=== PATIENT | female | born 1965 | race Caucasian/White ===

== ENCOUNTER 2018-05-02 12:35 | Outpatient (CLI) | payer OTHER | END 2018-05-02 12:36 | disposition home or self-care (01) | LOC: BICMAMMO 12:35 | PROVIDERS: ATTEND Family Medicine | DX: Z12.31 Encounter for screening mammogram for malignant neoplasm of breast (principal); L90.5 Scar conditions and fibrosis of skin; Z98.890 Other specified postprocedural states; Z85.3 Personal history of malignant neoplasm of breast | CPT/HCPCS: 77063; 77067 ==

== ENCOUNTER 2018-05-25 00:36 | Observation (INO) | payer OTHER ==
[2018-05-25 01:58] LABS: #Basophils 0.1 thou/uL (0.0-0.2); #Eosinphils 0.2 thou/uL (0.0-0.7); #Monocytes 0.8 thou/uL (0.11-0.59); #Neutrophils 6.3 thou/uL (1.40-6.50); %Basophils 0.7 % (0.0-1.0); %Monocytes 8.7 % (0.0-10.0); %Neutrophils 67.6 % (42.0-75.0); Mean Corpuscular HGB CONC 32.5 g/dL (32.0-36.0); Mean Corpuscular Hemoglobin 25.7 pg (27.0-31.0); Mean Platelet Volume 9.5 fL (7.4-10.4); Platelet Count 232 thou/uL (130-400); RBC Distribution Width 14.5 % (11.5-14.5); Red Blood Cell (RBC) Count 4.28 mill/uL (4.20-5.40); White Blood Cell (WBC) Count 9.3 thou/uL (4.8-10.8)
[2018-05-25] MEDS ORDERED: Morphine 4 MG/ML VIAL ONE (01:59)
[2018-05-25] MEDS ORDERED: Ketorolac Tromethamine 30 MG/ML VIAL ONE (01:59)
[2018-05-25 02:23] LABS: ALT (SGPT) 15 U/L (8-55); AST (SGOT) 19 U/L (5-34); Albumin 4.1 g/dL (3.5-5.0); Alkaline Phosphatase 83 U/L (40-150); Anion Gap 15 mmol/L (10-20); BUN (Urea Nitrogen) 20 mg/dL (9.8-20.1); Bilirubin, Total Less than 0.2 mg/dL (0.2-1.2); CK (CPK) 219 U/L (29-168); Calc. Creatinine Clearance 0 mL/min (70-130); Calcium 9.5 mg/dL (7.8-10.44); Carbon Dioxide 20 mmol/L (22-29); Chloride 110 mmol/L (98-107); Estimated GFR-MDRD 70; Glucose 114 mg/dL (70-105); Lipase 54 U/L (8-78); Potassium 4.1 mmol/L (3.5-5.1); Protein, Total 8.1 g/dL (6.0-8.3); Sodium 141 mmol/L (136-145)
[2018-05-25 02:35] LABS: Bilirubin Negative (Negative); Blood, Urine Negative (Negative); Clarity CLEAR (Clear); Glucose, Urine (Dipstick) Negative (Negative); Leukocyte Moderate (Negative); Nitrite Negative (Negative); Protein, Urine (Dipstick) Negative (Neg-Trace); Specific Gravity, Urine 1.033 (1.002-1.036); Urobilinogen 0.2 mg/dL (0.2-1.0); pH, Urine 5.5 (5.0-9.0)
[2018-05-25 02:38] LABS: Bacteria/HPF None Seen HPF (None Seen); Hyaline Casts/LPF 4-6 HYALINE CAST LPF (0-3 Hyaline); Pathc Cast-AUWi Flag 0.29 (0-2.49); Squamous Epithelial 0-3 HPF (0-3); WBC/HPF 21-50 HPF (0-3)
[2018-05-25 06:06] LABS: Troponin I Less than 0.010 ng/mL (< 0.028)
[2018-05-25] MEDS ORDERED: Morphine 10 MG/ML VIAL ONE (06:54)
--- NOTE | 2018-05-25 08:09 | CT ---
PRELIMINARY REPORT/[facility]/EMERGENTY AFTER-HOURS PROCEDURE CT Angiography Chest With Contrast EXAM DATE/TIME: 05/25/2018 3:06 AM CLINICAL HISTORY: 52 years old, female; Pain; Chest pressure; Abdominal pain; Acute; Patient HX: F52 presents to ed for rib pain. PT reports moving a wheel barrel full of stones on the 15th and reports right rib pain 3 d ays later. PT reports since then the pain has progressively worsened. PT reports dry cough x3-4 weeks, night sweats x3-4 days, and diarrhea. PT denies any nausea, vomiting, fever, or chills. TECHNIQUE: Axial computed tomographic angiography images of the chest with intravenous contrast using CT angiogr aphy protocol. MIP reconstructed images were created and reviewed. COMPARISON: No relevant prior studies available. FINDINGS: Pulmonary arteries: No evidence of pulmonary embolism. Aorta: No acute findings. No aortic aneurysm or dissection. Lungs: Bilateral septal and peribronchial thickening and groundglass opacities likely represents pulm onary edema. Dependent and linear atelectasis. Pleural space: No pneumothorax. No pleural effusion. Heart: Cardiomegaly. No pericardial effusion. Mediastinum: Hiatal hernia. Lymph nodes: No significant adenopathy. Bones/joints: No acute fracture. Soft tissues: No acute findings. IMPRESSION: Pulmonary edema. Cardiomegaly. CT Angiography Abdomen With Contrast EXAM DATE/TIME: 05/25/2018 3:06 AM TECHNIQUE: Axial computed tomographic angiography images of the abdomen with intravenous contrast material, incl uding non-contrast images if performed. MIP and/or 3D reconstructed images were created and reviewed. MIP reconstructed images were created and reviewed. COMPARISON: No relevant prior studies available. FINDINGS: VASCULATURE: Aorta: No aortic aneurysm. No aortic dissection. Celiac trunk and mesenteric arteries: No occlusion or significant stenosis. Renal arteries: No occlusion or significant stenosis. ABDOMEN: Liver: No acute findings. No mass. Gallbladder and bile ducts: No calcified stones. No ductal dilation. Pancreas: No acute findings. No ductal dilation. Spleen: No acute findings. No splenomegaly. Adrenals: No acute findings. No mass. Kidneys and ureters: No acute findings. No hydronephrosis. Stomach and bowel: No obstruction. Intraperitoneal space: No free air. No significant fluid collection. Bones/joints: No acute fracture. No dislocation. Soft tissues: No acute findings. Lymph nodes: No enlarged lymph nodes. IMPRESSION: Unremarkable CTA abdomen. Thank you for allowing us to participate in the care of your patient. Dictated and Authenticated by: Keyshawn Still MD 05/25/2018 4:32 AM Central Time ([place] & [place]) FINAL REPORT CT ARTERIOGRAM CHEST WITH IV CONTRAST AND 3D MIP IMAGING CT ARTERIOGRAM ABDOMEN WITH IV CONTRAST AND 3D MIP IMAGING PERFORMED ON AN EMERGENCY BASIS: Date: 05/25/18 Time: 0309 hours HISTORY: Chest and abdomen pain radiating to back. FINDINGS/IMPRESSION: Findings agree with the preliminary report by [facility]. No CT evidence of aortic dissection or aneurysm. Hiatal hernia. Cardiomegaly. Minimal pericardial fluid. Pulmonary vascular congestion and developing edema. POS: [facility]
--- NOTE | 2018-05-25 08:15 | ULT ---
PRELIMINARY REPORT/[facility]/EMERGENTY AFTER-HOURS PROCEDURE US Abdomen Limited, Right Upper Quadrant EXAM DATE/TIME: 05/25/2018 1:41 AM CLINICAL HISTORY: 52 years old, female; Pain; Other: Rib pain TECHNIQUE: Real-time ultrasound of the abdomen with image documentation. Examination was focused on the right up per quadrant. COMPARISON: No relevant prior studies available. FINDINGS: Liver: Echogenic/fatty liver. No acute findings. No mass. Gallbladder: No acute findings. No gallstones. Common bile duct: Measures 6.6mm in diameter. Pancreas: Visualized pancreas is unremarkable. Right kidney: No acute findings. No mass. No hydronephrosis. IMPRESSION: No acute findings. Thank you for allowing us to participate in the care of your patient. Dictated and Authenticated by: Keyshawn Still MD 05/25/2018 4:08 AM Central Time ([place] & [place]) FINAL REPORT ULTRASOUND GALLBLADDER RIGHT UPPER QUADRANT: HISTORY: Abdominal pain. COMPARISON: None. FINDINGS: Real-time, ireland scale, and color evaluation of the right upper quadrant of the abdomen was performed. Findings and impression are concordant with the preliminary report. POS: [facility]
[2018-05-25 08:19] VITALS: BMI 41.0
[2018-05-25] MEDS ORDERED: Morphine 4 MG/ML VIAL SLOW IVP PRN (08:35)
[2018-05-25] MEDS ORDERED: Aspirin 325 MG TAB PO SCH (08:45)
[2018-05-25 09:19] LABS: Troponin I Less than 0.010 ng/mL (< 0.028)
[2018-05-25 11:37] VITALS: BP 150/67; TEMP 98.1
[2018-05-25 14:57] LABS: ALT (SGPT) 11 U/L (8-55); AST (SGOT) 15 U/L (5-34); Albumin 3.9 g/dL (3.5-5.0); Alkaline Phosphatase 76 U/L (40-150); Anion Gap 10 mmol/L (10-20); BUN (Urea Nitrogen) 16 mg/dL (9.8-20.1); Bilirubin, Total 0.2 mg/dL (0.2-1.2); Calc. Creatinine Clearance 147 mL/min (70-130); Calcium 8.7 mg/dL (7.8-10.44); Carbon Dioxide 24 mmol/L (22-29); Chloride 109 mmol/L (98-107); Estimated GFR-MDRD 76; Globulin 3.3 g/dL (2.4-3.5); Glucose 93 mg/dL (70-105); Potassium 3.9 mmol/L (3.5-5.1); Protein, Total 7.2 g/dL (6.0-8.3); Sodium 139 mmol/L (136-145)
[2018-05-25] MEDS ORDERED: ISOVUE-370 76%-LOCM 1 ML ONE (16:48)
--- NOTE | 2018-05-26 15:01 | SS ---
DATE OF ADMISSION: 05/25/2018 DATE OF DISCHARGE: 05/25/2018 PRIMARY CARE PHYSICIAN: Jeffery Ruiz MD. CHIEF COMPLAINT: Right chest and abdominal pain. HISTORY OF PRESENT ILLNESS: This is a 52-year-old, obese, white female without any cardiac history. She presents with 8 days of worsening right lower rib cage pain, radiating to her right flank and stomach. The patient reports that about 11 days ago, she lifted a wheelbarrow with some heavy stones and just scooted it over a little bit. She did not hurt after that, but she has also been having severe cough for about 2 to 3 weeks, which she has been being treated with cough medicines by per PCP. She reports that 8 days ago, she had gradual onset of right lower rib cage pain along the lower axially line with point tenderness and pain radiating all around it. She reports that the pain was worse with any deep breathing, with coughing, with twisting or any sort of movement. Pain got severely worse over the last few days, and so she came into the emergency room. In the ER, she was found to have an elevated D-dimer, so she had a CT dissection protocol, which showed no pulmonary embolism. No aortic aneurysm or dissection. No other abnormalities except for some cardiomegaly and some pulmonary vascular congestion. However, her B-natriuretic peptide was normal. The patient reports that her cough has actually gotten better over the last few days, but the pain has resided still there. Although, it did improve with medication in the emergency room. Due to having the right lower quadrant tenderness just below where the maximal pain is, she had an ultrasound done in the emergency room. This showed no gallstones. It did show a fatty liver and showed a common bile duct of 6.6 mm. No other abnormalities. The patient was put in observation for evaluation. The patient did have serial enzymes done overnight, which were negative. All 3 of her troponins were normal. She had normal liver function tests. PAST MEDICAL HISTORY: 1. Right breast cancer, status post resection. 2. Hypothyroidism. 3. Hiatal hernia. PAST SURGICAL HISTORY: 1. Right-sided lumpectomy and lymph node dissection. 2. Hysterectomy. 3. C3-C4 fusion. PSYCHIATRIC HISTORY: 1. Anxiety. 2. Depression. SOCIAL HISTORY: The patient smokes just under a pack per day of cigarettes and has smoked for the past 16 years. No alcohol or illicit drug use. ALLERGIES: NO KNOWN DRUG ALLERGIES. CURRENT MEDICATIONS: 1. Tizanidine 4 mg daily. 2. Alprazolam 0.5 mg twice a day. 3. Levothyroxine 75 mcg daily. 4. Tylenol with codeine No. 3 as needed. 5. Lamotrigine 150 mg daily. 6. Trazodone 200 mg at night. 7. Sertraline 100 mg daily. REVIEW OF SYSTEMS: CONSTITUTIONAL: No fevers. No chills. No weight changes. EYES: No double vision or blurred vision. ENT: No congestion, drainage, or sore throat. CARDIOVASCULAR: No chest pain. No palpitations or racing heart. PULMONARY: She has a coughing as per the HPI, which is mostly dry with a little bit of clear sputum. No dyspnea. No wheezing. GASTROINTESTINAL: No abdominal pain. No nausea or vomiting. She does have alternating diarrhea and constipation, this is normal for her. She also does regurgitate food into her back of her throat while she is sleeping at night. GENITOURINARY: No dysuria or hematuria. MUSCULOSKELETAL: See HPI. No other muscle aches or joint pains. SKIN: No rashes or lesions that she has noted. NEUROLOGIC: She has no numbness, tingling, or focal weakness currently. She does intermittently have numbness in her right arm from some bad disks in her neck, but this is chronic. PHYSICAL EXAMINATION: VITAL SIGNS: Blood pressure 150/67, pulse 64, respirations 20, O2 saturation 93 % on room air, temperature 98.1. GENERAL: This is a well-developed, morbidly obese, white female, in no acute distress when she lies still and does not move. HEENT: Pupils are equal, round, and reactive to light. Oropharynx is clear without lesions, erythema, or exudate. NECK: Supple. No lymphadenopathy. No thyroid nodules or enlargement. No JVD. HEART: Regular rate and rhythm. No murmurs, rubs, or gallops. LUNGS: Clear to auscultation bilaterally. No wheezes, crackles, or rhonchi. She does have point tenderness on the right axillary line at the lower end of the rib cage with no deformity or bruising, and no rash visualized. Pressing in this point reproduces all the pain. She does have some tenderness in the right upper quadrant, although it is not nearly as severe as right over the rib cage. ABDOMEN: Obese and soft. Mild tenderness to palpation in the right upper quadrant and right flank. No hepatosplenomegaly. No other masses. Normoactive bowel sounds. EXTREMITIES: No clubbing, cyanosis, or edema. SKIN: No rashes or lesions noted. NEUROLOGIC: Intact sensation in all extremities. No facial droop. LABORATORY DATA: CBC; white blood cell count 9.3, hemoglobin 11, hematocrit 33, platelet count 232. D-dimer is elevated at 0.5. Complete metabolic panel is notable for chloride of 110, carbon dioxide of 20, and glucose of 114. LFTs are normal. Creatine kinase 219. Troponin negative x3. Urinalysis did have some leukocyte esterase and white blood cells, but no bacteria seen, it was a dirty specimen with multiple squamous epithelial cells along with some hyaline casts. CT and ultrasound were reviewed, see HPI. ASSESSMENT: 1. Right-sided rib cage strain from coughing. No evidence of acute coronary syndrome. This does not appear to be related to her liver or gallbladder at this point given the higher end is normal and common bile duct size. Joceline Santana was consulted by the ER. I did discuss the case with him on the phone, and he read that this was still within the normal range for the patient in her age, and he said she did not have any other abnormalities on her ultrasound and normal liver function tests, and she did not need any GI evaluation. Given the patient's diagnosis and really out of acute coronary syndrome, I am going to discharge her home with anti-inflammatories and also with Protonix to prevent any sort of irritation of her stomach or esophagus due to her hiatal hernia. 2. Mildly enlarged heart and some congestion on the CT scan, which is not consistent with her exam and her negative B-natriuretic peptide. There is a possibility that the patient does have some early congestive heart failure or maybe some heart strain from obesity hypoventilation syndrome. I have recommended that she follow up with her primary care physician in 1 to 2 weeks as she may need a cardiac evaluation , but at this point, she does not appear to have any active cardiac symptoms. 3. Hiatal hernia. Take Protonix daily while on NSAIDs. DISCHARGE MANAGEMENT: DISPOSITION: Discharge home. FOLLOWUP: Follow up with Dr. Ruiz in 1 to 2 weeks. ACTIVITY: As tolerated. DIET: Regular diet. MEDICATIONS: The patient is to resume her home medications along with: 1. Naproxen 500 mg twice a day as needed for pain, 60 tablets dispensed. 2. Protonix 40 mg daily, 30 tablets dispensed. Job ID: [id number] MTDD
--- NOTE | 2018-05-27 16:58 | EKG ---
Test Reason : RIB PAIN Blood Pressure : / mmHG Vent. Rate : 079 BPM Atrial Rate : 079 BPM P-R Int : 126 ms QRS Dur : 088 ms QT Int : 426 ms P-R-T Axes : 059 006 057 degrees QTc Int : 488 ms Normal sinus rhythm Normal ECG Confirmed by MICHEAL DURANT ([id number]), health editor GISELE ESTEVEZ ([id number]) on 05/27/2018 4:58:09 PM Referred By: Confirmed By:MICHEAL DURANT
== END 2018-05-25 14:32 | disposition home or self-care (01) ==
LOC: ERS 00:36 → ERHOLD 06:20 → 2SE 07:53
PROVIDERS: ADMIT Internal Medicine; ATTEND Internal Medicine
DX: R07.81 Pleurodynia (principal); I51.7 Cardiomegaly; K44.9 Diaphragmatic hernia without obstruction or gangrene; E03.9 Hypothyroidism, unspecified; E66.9 Obesity, unspecified; Z68.41 Body mass index [BMI] 40.0-44.9, adult; F41.9 Anxiety disorder, unspecified; F32.9 Major depressive disorder, single episode, unspecified; F17.210 Nicotine dependence, cigarettes, uncomplicated; Z90.710 Acquired absence of both cervix and uterus; Z98.1 Arthrodesis status; Z85.3 Personal history of malignant neoplasm of breast; Z79.899 Other long term (current) drug therapy; Z98.890 Other specified postprocedural states
CPT/HCPCS: 36415; 71275; 76705; 80053; 81003; 81015; 82550; 83690; 83880; 84484; 85025; 85379; 93005; 96361; 96374; 96375; 96376; G0378; J1885; J2270

== ENCOUNTER 2018-09-25 15:46 | Outpatient (CLI) | payer OTHER ==
--- NOTE | 2018-09-25 16:55 | ULT ---
ABDOMINAL ULTRASOUND: Date: 09-25-18 Provided Clinical History: Right upper quadrant pain. FINDINGS: The visualized abdominal aorta, IVC, and pancreas appear normal. The liver appears enlarged measuring about 20.5 cm craniocaudal dimension at the right hepatic lobe. There is no evidence for mass or int rahepatic biliary ductal dilatation. The common duct is upper limits normal in size. Gallbladder demo nstrates no stones, wall thickening or pericholecystic fluid. Kidneys demonstrate no evidence for hydronephrosis or mass. The spleen is enlarged measuring about 13 cm in craniocaudal dimension. IMPRESSION: 1. Hepatosplenomegaly. 2. Prominent common duct, upper limits of normal. POS: [facility]
== END 2018-09-25 15:47 | disposition home or self-care (01) ==
LOC: BICULT 15:46
PROVIDERS: ATTEND Family Medicine
DX: R10.9 Unspecified abdominal pain (principal); R16.2 Hepatomegaly with splenomegaly, not elsewhere classified
CPT/HCPCS: 76700

== ENCOUNTER 2018-10-04 11:58 | Outpatient (CLI) | payer OTHER ==
--- NOTE | 2018-10-04 13:50 | RAD ---
ABDOMEN TWO VIEWS: 10/04/2018 PROVIDED CLINICAL HISTORY: Right upper quadrant pain. COMPARISON: None. FINDINGS: The visualized lung bases appear clear. The abdominal bowel gas pattern is nonspecific. Conspicuous colonic fecal retention. No evidence for pneumoperitoneum. No radiographically apparent urinary tr act calculi. IMPRESSION: 1. Nonspecific bowel gas pattern. 2. Conspicuous colonic fecal retention. Correlation for constipation. POS: [facility]
== END 2018-10-04 11:59 | disposition home or self-care (01) ==
LOC: BICRAD 11:58
PROVIDERS: ATTEND Physician Assistant Medical
DX: R10.11 Right upper quadrant pain (principal)
CPT/HCPCS: 74019

== ENCOUNTER 2019-04-12 17:50 | Observation (INO) | payer SELFPAY ==
[~2019-04-12 17:50] MED LIST: Iopamidol-370 76% 500 ML 1 ML ONE
[2019-04-12 18:15] LABS: #Basophils 0.1 thou/uL (0.0-0.2); #Eosinphils 0.2 thou/uL (0.0-0.7); #Lymphocytes 2.2 thou/uL (1.20-3.40); #Monocytes 0.4 thou/uL (0.11-0.59); #Neutrophils 3.3 thou/uL (1.40-6.50); %Basophils 0.8 % (0.0-1.0); %Eosinophils 3.2 % (0.0-10.0); %Lymphocytes 36.1 % (21.0-51.0); %Neutrophils 52.9 % (42.0-75.0); Hemoglobin 13.7 g/dL (12.0-16.0); Mean Corpuscular HGB CONC 33.9 g/dL (32.0-36.0); Mean Corpuscular Hemoglobin 30.4 pg (27.0-31.0); Mean Corpuscular Volume 89.8 fL (78.0-98.0); Mean Platelet Volume 8.3 fL (7.4-10.4); Platelet Count 187 thou/uL (130-400); RBC Distribution Width 13.2 % (11.5-14.5); Red Blood Cell (RBC) Count 4.51 mill/uL (4.20-5.40); White Blood Cell (WBC) Count 6.2 thou/uL (4.8-10.8)
[2019-04-12 18:44] LABS: ALT (SGPT) 13 U/L (8-55); AST (SGOT) 16 U/L (5-34); Albumin 4.6 g/dL (3.5-5.0); Alkaline Phosphatase 87 U/L (40-110); Anion Gap 13 mmol/L (10-20); BUN (Urea Nitrogen) 13 mg/dL (9.8-20.1); Bilirubin, Total 0.3 mg/dL (0.2-1.2); Calc. Creatinine Clearance 0 mL/min (70-130); Calcium 9.6 mg/dL (7.8-10.44); Carbon Dioxide 23 mmol/L (22-29); Chloride 109 mmol/L (98-107); Estimated GFR-MDRD 66; Globulin 3.5 g/dL (2.4-3.5); Glucose 77 mg/dL (70-105); Protein, Total 8.1 g/dL (6.0-8.3); Sodium 141 mmol/L (136-145)
--- NOTE | 2019-04-12 19:17 | RAD ---
CHEST ONE VIEW: 04/12/19 HISTORY: Pain. FINDINGS: Normal cardiac silhouette for portable technique. Pulmonary vessels and hilum are normal. Costophren ic angles are clear. Left lower lobe infiltrate. No pneumothorax. IMPRESSION: Left lower lobe infiltrate. POS: [facility]
--- NOTE | 2019-04-12 19:19 | CT ---
CT head noncontrast HISTORY: Headache. Blurry vision. FINDINGS: No comparison. There is no evidence of acute intracranial hemorrhage or infarct. The ventri cles appear normal in size, shape and position. There is no mass effect or shift of midline structures. Visualized paranasal sinuses remain well aerated. IMPRESSION: No acute intracranial abnormalities are demonstrated.
--- NOTE | 2019-04-12 19:28 | CT ---
CT arteriogram chest with IV contrast and 3-D imaging HISTORY: Chest pain. COMPARISON: 05/25/2018. FINDINGS: There is good contrast opacification of the pulmonary arteries. Contrast has not reached th e aortic arch at the time of imaging. Borderline pulmonary vascular congestion evident. Mild atelectasis at the left posterior costophrenic angle. No pleural fluid or pneumothorax. Small hiatal hernia again demonstrated. IMPRESSION: No CT evidence of pulmonary embolus. Chronic-type findings are stable.
[2019-04-12] MEDS ORDERED: Aspirin Chewable 81 MG TAB ONE (21:18)
[2019-04-12 21:36] LABS: Troponin I Less than 0.010 ng/mL (< 0.028)
--- NOTE | 2019-04-12 21:53 | ULT ---
Venous duplex sonogram left lower extremity HISTORY: Left leg pain and edema. FINDINGS: The left common femoral vein and greater saphenous junction were evaluated along with the f emoral, deep femoral, popliteal, and posterior tibial veins. There is good color and spectral Doppler flow, compression, and augmentation. IMPRESSION: Normal exam.
[2019-04-12 22:14] VITALS: BMI 37.4
[2019-04-12] MEDS ORDERED: traZODone HCl 150 MG TAB PO SCH (23:30)
[2019-04-12] MEDS ORDERED: ALPRAZolam 0.5 MG TAB PO SCH (23:30)
[2019-04-12] MEDS ORDERED: rOPINIRole HCl 0.25 MG TAB PO SCH (23:30)
[2019-04-12] MEDS: Sodium Chloride 0.9% 1,000 ML IV SCH (23:41)
[2019-04-12] MEDS ORDERED: Ketorolac Tromethamine 10 MG TAB PO SCH (23:59)
[2019-04-13 00:48] LABS: Troponin I Less than 0.010 ng/mL (< 0.028)
--- NOTE | 2019-04-13 01:00 | HP ---
PRIMARY CARE PHYSICIAN: None. CHIEF COMPLAINT: Chest pain. HISTORY OF PRESENT ILLNESS: Ms. Alcazar is a 53-year-old woman, who has been referred for chest pain rule out, but presents with multiple complaints. The patient states what prompted her visit to the ER today was the persisting chest pain that started early this morning. She states it was substernal and described as a pressure, that was intermittent throughout the day at times, radiating to her left shoulder. She states it would last 10-15 minutes at a time and she is unsure how soon it would come back. She did not try taking anything for pain and states she noted some associated difficulty with her breathing at times due to the pain being intense. She states the pain ranged from 4 to 8/10 in severity. It continued to worsen throughout the day. 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 Denies any slurred speech, any facial numbness or weakness. She is unsure if this was being triggered by the chest pain. Reports having issues with headaches for the last several days. Also recalls having ongoing intermittent chest pain and shortness of breath with exertion for the last 4 days. She has had an abnormal stress test approximately 3 months ago and was recommended catheterization, which she was not able to do due to being uninsured. The patient was seen by Dr. Lamas who recommended a catheterization. The patient also reports having pain in the posterior knee since today and denies having any falls or trauma. States she has relief of her pain with plantar flexion, but worsening pain with plantar extension. She describes a tingling sensation from the back of her knee down to her toes, but denies any weakness or numbness. Also reports having a tingling sensation in her left arm. The patient reports having issues with dry heaving and headaches every morning. Denies having any abdominal pain. Reports having issues with chronic constipation. Denies any urinary symptoms. Has not had any recent fevers, chills, or sweats. No dizziness. All other review of systems are negative. In the emergency department, she underwent an EKG which showed normal sinus rhythm with a heart rate of 60. There were no ST changes or T-wave abnormalities. She had a chest x-ray done, which showed no acute intrathoracic disease. Laboratory studies were done which showed a normal full blood count. Sodium was 141, potassium 4.0, chloride 109, carbon dioxide 23, anion gap 15, BUN 13, creatinine 0.90, GFR 66, glucose 77, calcium 9.6, total bilirubin 0.3, AST 16, ALT 13, and alkaline phosphatase 87. Troponin negative x2, albumin 4.6. Given the complaints of pain in the left leg, she underwent a vascular ultrasound, which showed no evidence of DVT. She had a CT angiogram of the chest done, which showed no evidence of PE. A CT of the brain was done as well which showed no acute intracranial abnormalities. This was done due to headaches and blurry vision reported in the emergency department. PAST MEDICAL HISTORY: 1. Hyperlipidemia. 2. Hypertension. 3. History of right breast cancer. 4. Hypothyroidism. 5. Anemia. 6. Chest pain with history of abnormal stress test 2 months ago. 7. Previous smoker. 8. Anxiety. 9. Depression. PAST SURGICAL HISTORY: 1. Right breast lumpectomy and lymph node dissection. 2. Hysterectomy in 2002. 3. C3-C4 fusion. SOCIAL HISTORY: The patient is a former smoker. She quit 3 months ago. Denies any alcohol consumption or illicit drug use. ALLERGIES: NO KNOWN DRUG ALLERGIES. CURRENT MEDICATIONS: 1. Alprazolam. 2. Trazodone. 3. Sertraline. 4. Lamotrigine. 5. Ferrous sulfate. 6. Levothyroxine. 7. Metoprolol tartrate. 8. Ropinirole. PHYSICAL EXAMINATION: GENERAL: The patient appears well developed, well nourished, is in no acute distress. She is resting comfortably in bed. VITAL SIGNS: Temperature 98.6, pulse 55, respirations 14, O2 saturation 96% on room air, blood pressure 135/61. HEENT: Normocephalic and atraumatic. Pupils are equal, round, and reactive to light. Sclerae without icterus. Oropharynx is clear. NECK: Supple without lymphadenopathy. LUNGS: Clear to auscultation bilaterally without any wheezes, rales, or rhonchi. CARDIAC: Regular rate and rhythm without audible murmurs, rubs, or gallops. No reproducible pain with palpation. ABDOMEN: Soft, nontender, nondistended. Normoactive bowel sounds present. EXTREMITIES: No lower leg swelling or edema. She does have discomfort with palpation in the posterior knee. No palpable mass or deformity. Sensation intact. Able to plantar flex and extend against resistance. Reports relief with plantar flexion. Pedal pulses are equal and strong bilaterally. Left leg is warm to touch. No pallor. No calf tenderness. NEUROLOGIC: Alert and oriented x3. Facial movements normal. Speech is normal. No tongue deviation. Extraocular movements intact. Power 5/5 in all limbs. No neuro deficits on exam. INVESTIGATIONS: As mentioned above in HPI. IMPRESSION AND PLAN: Ms. Alcazar is a 53-year-old woman presenting with multiple complaints, who has been referred for the following. 1. Acute coronary syndrome rule out. The patient known to have abnormal stress test 2 months ago and recommended catheterization by Dr. Lamas, but unable to have this done due to being uninsured. She has had persistent chest pain for the last 2 months, progressively worsening and today has been persistent. We will continue to trend troponins. Cardiology consult placed to Dr. Lamas. 2. Headache with nausea and blurred vision. The patient has undergone CT of the head which was unremarkable. The patient has multiple complaints including some changes with her speech earlier today. Also tingling in the left arm, which she thought was attributed to the left chest pain radiating to her left arm, but also with pain in her knee and tingling associated with that. No extremity weakness. We will obtain echo. Further imaging to be determined by day team. No concern for any neuro deficits at this time and the difficulty with her speech I believe is attributed to the fact that she was having severe ongoing chest pain that was also causing some difficulty with her breathing. We will continue to monitor. 3. Left knee pain. The patient underwent venous Doppler which was negative. She has had no trauma or injury. We will give her one-time dose of Toradol. Given the fact that she has had multiple imaging studies including a CT of the brain, CT angiogram of the chest, and chest x-ray, we will let day team to decide if further imaging needed at this time to better assess her knee. I am sure that an x-ray would provide a new information given that she has had no trauma and might likely benefit from a CT versus MRI of the knee. 4. Hypertension. Monitor blood pressure and resume home medications once verified. 5. Hyperlipidemia. Resume home medications once verified. We will check lipid panel with morning labs. 6. Hypothyroidism. We will check TSH. Resume home medications once verified. 7. Gastrointestinal prophylaxis. Famotidine 20 mg b.i.d. 8. Deep venous thrombosis prophylaxis. Mechanical SCDs. 9. Code status full. Her surrogate decision maker is her sister, Jil Gil. The patient's case to be discussed with attending for further recommendations. Job ID: [id number]
[2019-04-13 05:25] LABS: #Eosinphils 0.2 thou/uL (0.0-0.7); #Lymphocytes 2.3 thou/uL (1.20-3.40); #Monocytes 0.6 thou/uL (0.11-0.59); #Neutrophils 3.2 thou/uL (1.40-6.50); %Basophils 0.8 % (0.0-1.0); %Eosinophils 3.6 % (0.0-10.0); %Lymphocytes 35.6 % (21.0-51.0); %Monocytes 9.5 % (0.0-10.0); %Neutrophils 50.6 % (42.0-75.0); Mean Corpuscular HGB CONC 33.9 g/dL (32.0-36.0); Mean Corpuscular Hemoglobin 30.6 pg (27.0-31.0); Mean Corpuscular Volume 90.5 fL (78.0-98.0); Mean Platelet Volume 8.8 fL (7.4-10.4); Platelet Count 159 thou/uL (130-400); RBC Distribution Width 13.2 % (11.5-14.5); Red Blood Cell (RBC) Count 4.24 mill/uL (4.20-5.40); White Blood Cell (WBC) Count 6.4 thou/uL (4.8-10.8)
[2019-04-13 05:43] LABS: Anion Gap 12 mmol/L (10-20); BUN (Urea Nitrogen) 15 mg/dL (9.8-20.1); Calc. Creatinine Clearance 122 mL/min (70-130); Calcium 9.3 mg/dL (7.8-10.44); Carbon Dioxide 23 mmol/L (22-29); Cardiac Risk 6.7 (Less than 4.5); Chloride 110 mmol/L (98-107); Cholesterol 293 mg/dl (< 200 Desired); Estimated GFR-MDRD 68; Glucose 98 mg/dL (70-105); HDL Cholesterol 44 mg/dL (>60 Neg Risk); Potassium 3.8 mmol/L (3.5-5.1); Sodium 141 mmol/L (136-145); Triglycerides 438 mg/dL (Less than 150)
[2019-04-13] MEDS: Levothyroxine Sodium 100 MCG TAB PO SCH (06:06)
[2019-04-13] MEDS: Ferrous Sulfate 325 MG TAB PO SCH (07:53)
[2019-04-13] MEDS: lamoTRIgine 100 MG TAB PO SCH (07:56)
[2019-04-13] MEDS ORDERED: Famotidine/PF 20 mg/2ml Vial SLOW IVP SCH (09:00)
[2019-04-13] MEDS ORDERED: FLU VACC QS2019-20(6MOS UP)/PF 60 MCG/0.5 ML SYRINGE IM ONE (09:00)
[2019-04-13] MEDS ORDERED: Iopamidol 370 76% 100 ML VIAL ONE (10:22)
[2019-04-13] MEDS: Sodium Chloride 0.9% 1,000 ML IV SCH (13:06)
[2019-04-13] MEDS: traMADol HCl 50 MG TAB PO PRN (13:06)
[2019-04-13] MEDS ORDERED: Lidocaine 1% (PF) 30 ML VIAL ONE (14:38)
[2019-04-13] MEDS ORDERED: Heparin (Artline) 1,000 ML ONE (14:38)
[2019-04-13] MEDS ORDERED: Communication Order-Pharmacy FS SCH (14:45)
[2019-04-13] MEDS ORDERED: Midazolam HCl 2 mg/2 ml Vial ONE (15:13)
[2019-04-13] MEDS ORDERED: Fentanyl 100 MCG/2 ML VIAL ONE (15:16)
[2019-04-13] MEDS ORDERED: Nitroglycerin 100MG/250ML BOT 250 ML ONE (15:42)
[2019-04-13] MEDS ORDERED: Sodium Chloride 0.9% 200 ML IV PRN (16:03)
[2019-04-13] MEDS ORDERED: Nitroglycerin 0.4 MG TAB (25 Tab Bottle) SL PRN (16:03)
[2019-04-13] MEDS ORDERED: Acetaminophen/Codeine 30-300mg Tablet PO PRN ×2 (16:03)
--- NOTE | 2019-04-13 20:07 | CON ---
DATE OF CONSULTATION: PRIMARY TELESCOPE OPERATOR: Vignesh Lamas MD REASON FOR CONSULTATION: Chest pressure at rest with abnormal EKG. HISTORY OF PRESENT ILLNESS: Ms. Alcazar is a 53-year-old woman. She has been having chest pressure intermittently, sometimes with exertion, sometimes at rest for several months. She underwent outpatient stress testing, which showed anterior ischemia. Cardiac catheterization was advised, but the patient was unable to get the procedure done due to financial difficulties. She came to the hospital last night with increasing amounts of chest pain and pressure. Cardiac enzymes were negative, but EKG did show anterior T-wave inversion. The patient also was given aspirin. The patient still has vague discomfort in her chest now, she states it is nowhere near what it was last night. Her biggest complaint is pain in the left leg from the left knee down, feels like an electrical feeling at times as well there. PAST MEDICAL HISTORY: 1. Hypertension. 2. Hyperlipidemia. 3. Hyperlipidemia, mixed, with very high cholesterol and triglycerides. 4. History of breast cancer. MEDICATIONS: Prior to admission, metoprolol. She was not taking aspirin. She was given one aspirin last night. SOCIAL HISTORY: Quit smoking 3 months ago. PHYSICAL EXAMINATION: GENERAL: She is a pleasant 53-year-old woman, in no distress. Moderately obese. VITAL SIGNS: Blood pressure 132/60, pulse 72, regular. HEENT: Eyes, sclerae, nonicteric. Mouth, mucous membranes moist. NECK: Supple. No lymphadenopathy. LUNGS: Clear no wheezing, rales, or rhonchi. CARDIAC: Normal S1, normal S2. There is no murmur, rub, or gallop. ABDOMEN: Obese, nontender. No hepatosplenomegaly. EXTREMITIES: Warm and dry. No clubbing. No cyanosis or edema. She has good dorsalis pedis pulses bilaterally. PERTINENT LABORATORY DATA: Triglyceride 438, cholesterol 293, unable to calculate LDL due to the high triglycerides. HDL is 44. Creatinine is 0.87. EKG did show T-wave inversion in V1, V2, V3. ASSESSMENT: 1. Chest pressure at rest, suspicious for unstable angina. 2. Mixed hyperlipidemia. 3. History of smoking, stopped 3 months ago. 4. Abnormal stress test showing anterior ischemia. PLAN: Recommend proceed to cardiac catheterization. Discussed risk of stroke, heart attack, iodine allergy, loss of blood supply to leg or kidney. Discussed stent thrombosis. Discussed stent restenoses. Discussed vessel perforation in the heart artery. Discussed need for emergency bypass surgery. The patient understands and wishes to proceed. Job ID: [id number]
[2019-04-13] MEDS ORDERED: Polyethylene Glycol 3350 17 GM Packet PO SCH (21:00)
[2019-04-13] MEDS ORDERED: traZODone HCl 150 MG TAB PO SCH (21:00)
[2019-04-13] MEDS ORDERED: ALPRAZolam 0.5 MG TAB PO SCH (21:00)
[2019-04-13] MEDS ORDERED: rOPINIRole HCl 0.25 MG TAB PO SCH (21:00)
[2019-04-13] MEDS: Famotidine 20 MG TAB PO SCH (21:06)
--- NOTE | 2019-04-13 23:01 | PDOC.HOSPP ---
- Subjective Encounter Date: 04/13/19 Encounter Time: 07:30 Subjective: Patient seen and examined for CP. No CP at this time. No SOB/syncope No new complaints. No overnight events - Objective Vital Signs & Weight: Vital Signs (12 hours) Temp Pulse Resp BP BP BP Pulse Ox 04/13/19 22:04 67 15 128/61 04/13/19 20:15 60 15 115/56 L 93 L 04/13/19 19:10 98.2 F 75 16 119/54 L 93 L 04/13/19 16:00 98.1 F 74 20 118/57 L 96 04/13/19 11:35 98.1 F 73 16 132/60 96 Weight Weight 224 lb 13.944 oz I&O: 04/12/19 04/13/19 04/14/19 06:59 06:59 06:59 Intake Total 650 250 Output Total 450 350 Balance 200 -100 Result Diagrams: 04/13/19 04:33 04/13/19 04:33 EKG Reviewed by me: Yes (Tele SR) Hospitalist ROS - Review of Systems Respiratory: denies: cough, dry, shortness of breath, hemoptysis, SOB with excertion, pleuritic pain, sputum, wheezing, other Gastrointestinal: denies: nausea, vomiting, abdominal pain, diarrhea, constipation, melena, hematochezia, other - Medication Medications: Active Medications Generic Name Dose Route Start Last Admin Trade Name Freq PRN Reason Stop Dose Admin Famotidine 20 mg 04/13/19 21:00 04/13/19 21:06 Pepcid PO 20 mg Q12HR DARRELL Administration Ferrous Sulfate 325 mg 04/13/19 09:00 04/13/19 07:53 Feosol PO Not Given DAILY DARRELL Lamotrigine 150 mg 04/13/19 09:00 04/13/19 07:56 Lamictal PO 150 mg DAILY DARRELL Administration Levothyroxine Sodium 100 mcg 04/13/19 06:00 04/13/19 06:06 Synthroid PO 100 mcg 0600 DARRELL Administration Metoprolol Succinate 25 mg 04/13/19 09:00 04/13/19 07:55 Toprol Xl PO 25 mg DAILY DARRELL Administration Polyethylene Glycol 17 gm 04/13/19 21:00 04/13/19 21:05 Miralax PO 17 gm Q24HR DARRELL Administration Sertraline HCl 100 mg 04/13/19 09:00 04/13/19 07:56 Zoloft PO 100 mg DAILY DARRELL Administration Sodium Chloride 10 ml 04/12/19 23:16 04/12/19 23:41 Flush - Normal Saline IVF 10 ml PRN PRN Administration Saline Flush Tramadol HCl 50 mg 04/13/19 00:10 04/13/19 13:06 Ultram PO 50 mg Q4H PRN Administration Pain - Exam General Appearance: NAD Heart: RRR, no gallops Respiratory: CTAB, no rales Gastrointestinal: soft, non-tender, normal bowel sounds Extremities: no edema Hosp A/P - Plan DVT proph w/SCDs CP Abnormal Stress test Former smoker Obesity BMI 37.4 HTN Anxiety Hypothyroidism PLAN: Await Cardiology input Cath today Cont Metoprolol Cont other meds Cont tele monitoring
[2019-04-14] MEDS: Levothyroxine Sodium 100 MCG TAB PO SCH (06:06)
[2019-04-14] MEDS: traMADol HCl 50 MG TAB PO PRN ×2 (06:06→15:12)
[2019-04-14] MEDS: Famotidine 20 MG TAB PO SCH (07:58)
[2019-04-14] MEDS: Ferrous Sulfate 325 MG TAB PO SCH (07:59)
[2019-04-14] MEDS: lamoTRIgine 100 MG TAB PO SCH (07:59)
--- NOTE | 2019-04-14 08:52 | ULT ---
ULTRASOUND ABDOMEN LIMITED: (RIGHT UPPER QUADRANT) DATE: 04/14/2019 HISTORY: 53-year-old female with epigastric pain FINDINGS: Gallbladder: Normal wall thickness. No gallstones or sludge identified. No pericholecystic fluid. Liver: Normal parenchymal echogenicity. Right kidney: No hydronephrosis. Pancreas: Visualized, with no gross sonographic abnormality identified (although ultrasound is relati vely insensitive for the detection of pancreatic pathology compared to CT and MRI.). Common duct caliber: 5 mm. IMPRESSION: Normal.
[2019-04-14 15:34] VITALS: BP 108/63; TEMP 98.5
--- NOTE | 2019-04-14 20:32 | DIS ---
DATE OF ADMISSION: 04/12/2019 DATE OF DISCHARGE: 04/14/2019 PRIMARY CARE PROVIDER: Jeffery Ruiz MD DISCHARGE DIAGNOSES: 1. Chest pain. 2. Chest pain most likely secondary to musculoskeletal etiology. 3. Dyslipidemia. 4. Elevated TSH, normal free T4. CONDITION OF PATIENT ON THE DAY OF DISCHARGE: Stable. I assessed Ms. Alcazar on the day of discharge. She denies any chest pain or shortness of breath. Vital signs are stable. S1 and S2 are heard, regular. Lungs are clear to auscultation bilaterally. CONSULTATIONS DURING THIS HOSPITALIZATION: Cardiology, David Sharma MD DISCHARGE MEDICATIONS: The patient has been started on Lipitor 40 mg at bedtime. Otherwise, no change has been made to her pre-admission home medications, which include: 1. Xanax 0.5 mg at bedtime. 2. Ferrous sulfate 325 mg daily. 3. Lamotrigine 150 mg daily. 4. Levothyroxine 100 mcg daily. 5. Toprol-XL 25 mg daily. 6. Ropinirole 0.25 mg at bedtime. 7. Sertraline 100 mg daily. HOSPITAL COURSE: Ms. Alcazar is a pleasant 53-year-old lady, who was admitted to [facility] on April 12, 2019, for chest pain. She was seen by Cardiology Service. CT angiogram of the chest did not show any evidence of pulmonary embolism. She underwent cardiac catheterization. She was found to have normal coronary arteries. She also had abdominal ultrasound, which was normal. Fasting lipid profile showed triglycerides 438, cholesterol 293, and HDL cholesterol 44. TSH was elevated at 15.01, but free T4 was normal at 0.75. Many thanks for allowing me to participate in your patient's care. Please feel free to contact me with any questions or concerns. DISCHARGE DESTINATION: Home. ACTIVITY: As tolerated. DIET: Heart healthy. Job ID: [id number] [facility]
== END 2019-04-14 16:17 | disposition home or self-care (01) ==
LOC: ERS 17:50 → 2SW 22:09
PROVIDERS: ADMIT Internal Medicine; ATTEND Internal Medicine
PROC: 4A023N7 Measurement of Cardiac Sampling and Pressure, Left Heart, Percutaneous Approach (ICD-10-PCS; principal; 2019-04-13)
PROC: B2111ZZ Fluoroscopy of Multiple Coronary Arteries using Low Osmolar Contrast (ICD-10-PCS; 2019-04-13)
DX: R07.89 Other chest pain (principal); R51 Headache; E03.9 Hypothyroidism, unspecified; E78.00 Pure hypercholesterolemia, unspecified; E78.2 Mixed hyperlipidemia; I10 Essential (primary) hypertension; F41.9 Anxiety disorder, unspecified; F32.9 Major depressive disorder, single episode, unspecified; D64.9 Anemia, unspecified; E66.9 Obesity, unspecified; Z68.37 Body mass index [BMI] 37.0-37.9, adult; Z79.899 Other long term (current) drug therapy; Z85.3 Personal history of malignant neoplasm of breast; Z87.891 Personal history of nicotine dependence
CPT/HCPCS: 36415; 70450; 71045; 71275; 76705; 76942; 80048; 80053; 80061; 83735; 83880; 84439; 84443; 84484; 85025; 90471; 90686; 93005; 93306; 93458; 96361; 96374; 99152; 99153; C1769; G0008; G0378; J1644; J2001; J2250; J3010; Q9967; S0028

== ENCOUNTER 2019-07-16 11:46 | Outpatient (CLI) | payer OTHER ==
--- NOTE | 2019-07-17 14:40 | MMO ---
Bilateral MAMMO Bilat Screen [facility]SS[facility]. CLINICAL HISTORY: Patient is 53 years old and is seen for screening. The patient has no family history of breast cancer. The patient has a history of malignant (generic) in the right breast in 2010. The patient has a history of right Lumpectomy in 2010. VIEWS: The views performed were: bilateral craniocaudal with tomosynthesis and bilateral mediolateral oblique with tomosynthesis. FILMS COMPARED: The present examination has been compared to a prior imaging study performed at [facility] on 05/02/2018. This study has been interpreted with the assistance of computer-aided detection. MAMMOGRAM FINDINGS: The breasts are almost entirely fat. There is a stable area of architectural distortion with associated post-surgical scar seen in the right breast. There are no suspicious masses, suspicious calcifications, or new areas of architectural distortion. IMPRESSION: A ROUTINE FOLLOW-UP MAMMOGRAM IN 1 YEAR IS RECOMMENDED. THE RESULTS OF THIS EXAM WERE SENT TO THE PATIENT. ACR BI-RADS Category 2 - Benign finding MAMMOGRAPHY NOTE: 1. A negative mammogram report should not delay a biopsy if a dominant of clinically suspicious mass is present. 2. Approximately 10% to 15% of breast cancers are not detected by mammography. 3. Adenosis and dense breasts may obscure an underlying neoplasm. Reported by: ERON HERNANDEZ MD Electonically Signed: [id number]
== END 2019-07-16 11:47 | disposition home or self-care (01) ==
LOC: BICMAMMO 11:46
PROVIDERS: ATTEND Family Medicine
DX: Z12.31 Encounter for screening mammogram for malignant neoplasm of breast (principal); Z85.3 Personal history of malignant neoplasm of breast; Z98.890 Other specified postprocedural states
CPT/HCPCS: 77063; 77067

== ENCOUNTER 2020-07-29 07:32 | Emergency (ER) | payer SELFPAY ==
[2020-07-29] MEDS ORDERED: Morphine 4 MG/ML VIAL ONE (08:38)
[2020-07-29] MEDS ORDERED: Mag-Al 1200 mg/1200 mg/30 ML UDCUP ONE (08:38)
[2020-07-29] MEDS ORDERED: Lidocaine Viscous Sol 2% 15 ml UD Cup ONE (08:38)
[2020-07-29] MEDS ORDERED: Ondansetron PF 4 MG/2 ML Vial ONE (08:38)
[2020-07-29 08:41] LABS: #Eosinphils 0.1 thou/uL (0.0-0.7); #Lymphocytes 1.6 thou/uL (1.20-3.40); #Monocytes 0.8 thou/uL (0.11-0.59); #Neutrophils 6.3 thou/uL (1.40-6.50); %Basophils 0.3 % (0.0-1.0); %Eosinophils 1.2 % (0.0-10.0); %Lymphocytes 18.3 % (21.0-51.0); %Monocytes 8.8 % (0.0-10.0); %Neutrophils 71.4 % (42.0-75.0); Hemoglobin 11.2 g/dL (12.0-16.0); Mean Corpuscular HGB CONC 33.6 g/dL (32.0-36.0); Mean Corpuscular Hemoglobin 27.4 pg (27.0-31.0); Mean Corpuscular Volume 81.6 fL (78.0-98.0); Mean Platelet Volume 9.7 fL (7.4-10.4); Platelet Count 191 thou/uL (130-400); RBC Distribution Width 13.7 % (11.5-14.5); Red Blood Cell (RBC) Count 4.07 mill/uL (4.20-5.40); White Blood Cell (WBC) Count 8.8 thou/uL (4.8-10.8)
[2020-07-29 09:14] LABS: ALT (SGPT) 14 U/L (8-55); AST (SGOT) 18 U/L (5-34); Albumin 3.9 g/dL (3.5-5.0); Alkaline Phosphatase 90 U/L (40-110); Anion Gap 16 mmol/L (10-20); BUN (Urea Nitrogen) 11 mg/dL (9.8-20.1); Bilirubin, Total 0.2 mg/dL (0.2-1.2); Calc. Creatinine Clearance 0 mL/min (70-130); Calcium 9.2 mg/dL (7.8-10.44); Carbon Dioxide 20 mmol/L (22-29); Chloride 107 mmol/L (98-107); Globulin 3.7 g/dL (2.4-3.5); Glucose 102 mg/dL (70-105); Lipase 23 U/L (8-78); Potassium 4.3 mmol/L (3.5-5.1); Protein, Total 7.6 g/dL (6.0-8.3); Sodium 139 mmol/L (136-145)
--- NOTE | 2020-07-29 09:21 | CT ---
EXAM: CT ABDOMEN AND PELVIS HISTORY: Upper quadrant pain, radiating to the right lower quadrant. COMPARISON: CT aortic dissection protocol 05/25/2018 Procedure: Multiple contiguous axial images were obtained and a CT of the abdomen and pelvis with IV contrast. C oronal reformats were performed. FINDINGS: Lower Chest: Chronic changes to the lung bases. There are small bilateral effusions Vessels: Normal caliber aorta. No periaortic fat stranding Heart: Upper normal heart size. No significant pericardial fluid Abdomen: Portal vein:Patent Gallbladder: No calcified gallstones. Normal caliber wall. Liver: within normal limits. Pancreas: within normal limits. Spleen: Well-circumscribed hypodensity emanating from the spleen measuring 0.9 cm, compatible with a cyst Adrenals: within normal limits. Kidneys: Symmetric enhancement. No obstructive uropathy. Peritoneum: No ascites or free air, no fluid collection. Bowel: Limited evaluation due to the lack of oral contrast administration. No evidence of bowel obstr uction. Ileocecal junction is unremarkable. Normal caliber appendix. Scattered fecal material in a nondistended, nondilated colon. Diverticulosis, without evidence of mild diverticulitis involving the sigmoid colon. No perforation or abscess. Mesentery and Retroperitoneum: No enlarged mesenteric or retroperitoneal lymph nodes. Abdominal Wall: within normal limits. Pelvis: Reproductive Organs: Surgically absent uterus Pelvis: No mass, lymphadenopathy or free air. Trace free fluid in the pelvis is identified Bladder: within normal limits. Bones: within normal limits. IMPRESSION: 1. Sigmoid colon diverticulitis. No evidence of abscess or perforation.
--- NOTE | 2020-07-29 09:28 | ULT ---
EXAM: US Gallbladder RUQ CLINICAL HISTORY: Right upper quadrant pain. COMPARISON: 04/14/2019 FINDINGS: Pancreas: The head of the pancreas has a normal echotexture. The remainder the pancreas is obscured by bowel gas Liver:Hepatic parenchyma has a normal echotexture. No hepatic masses or intrahepatic biliary dilatati on. Right hepatic lobe: 16.1 cm Gallbladder: No sonographic evidence of cholelithiasis, gallbladder wall thickening or pericholecysti c fluid. Garcia's sign:Negative Portal Vein: Patent. Appropriate directional flow Bile ducts: 0.6 cm Right kidney: No hydronephrosis. Right kidney measures 11.2 cm in length. IMPRESSION: Unremarkable exam.
[2020-07-29 10:13] LABS: Bacteria/HPF None Seen HPF (None Seen); Bilirubin Negative (Negative); Blood, Urine Negative (Negative); Clarity Clear (Clear); Glucose, Urine (Dipstick) Normal (Negative); Ketone, Urine Negative (Negative); Leukocyte 25 Leu/uL (Negative); Nitrite Negative (Negative); Protein, Urine (Dipstick) Negative (Neg-Trace); RBC/HPF 0-3 HPF (0-3); Specific Gravity, Urine 1.013 (1.002-1.036); Squamous Epithelial 0-3 HPF (0-3); Urobilinogen Normal mg/dL (Less than 2); WBC/HPF 0-3 HPF (0-3); pH, Urine 6.5 (5.0-9.0)
== END 2020-07-29 12:00 | disposition home or self-care (01) ==
LOC: ERS 07:32
DX: K57.32 Diverticulitis of large intestine without perforation or abscess without bleeding (principal); E78.5 Hyperlipidemia, unspecified; E78.00 Pure hypercholesterolemia, unspecified; I10 Essential (primary) hypertension; E03.9 Hypothyroidism, unspecified; D64.9 Anemia, unspecified; K21.9 Gastro-esophageal reflux disease without esophagitis; F17.210 Nicotine dependence, cigarettes, uncomplicated
CPT/HCPCS: 74177; 76705; 80053; 81003; 81015; 83690; 83735; 85025; 94760; 96372; 96374; 96375; J0500; J2270; J2405

== ENCOUNTER 2022-01-15 10:14 | Outpatient (CLI) | payer OTHER | END 2022-01-15 10:15 | disposition home or self-care (01) | LOC: BICMAMMO 10:14 | PROVIDERS: ATTEND Family Medicine | DX: Z12.31 Encounter for screening mammogram for malignant neoplasm of breast (principal); Z85.3 Personal history of malignant neoplasm of breast; Z98.890 Other specified postprocedural states | CPT/HCPCS: 77063; 77067 ==

== ENCOUNTER 2022-06-19 10:25 | Emergency (ER) | payer OTHER ==
[2022-06-19] MEDS ORDERED: Aspirin Chewable 81 MG TAB ONE (11:11)
[2022-06-19 11:19] LABS: #Eosinphils 0.1 thou/uL (0.0-0.7); #Lymphocytes 1.4 thou/uL (1.20-3.40); #Monocytes 0.5 thou/uL (0.11-0.59); #Neutrophils 6.2 thou/uL (1.40-6.50); %Basophils 0.2 % (0.0-1.0); %Eosinophils 1.6 % (0.0-10.0); %Lymphocytes 17.2 % (21.0-51.0); %Monocytes 6.4 % (0.0-10.0); %Neutrophils 74.6 % (42.0-75.0); Hemoglobin 9.8 g/dL (12.0-16.0); Mean Corpuscular HGB CONC 33.6 g/dL (32.0-36.0); Mean Corpuscular Hemoglobin 26.9 pg (27.0-31.0); Mean Platelet Volume 7.4 fL (7.4-10.4); Platelet Count 320 10x3/uL (130-400); RBC Distribution Width 16.1 % (11.5-14.5); Red Blood Cell (RBC) Count 3.62 mill/uL (4.20-5.40); White Blood Cell (WBC) Count 8.3 10x3/uL (4.8-10.8)
[2022-06-19 11:59] LABS: ALT (SGPT) 7 U/L (8-55); AST (SGOT) 6 U/L (5-34); Albumin 3.6 g/dL (3.5-5.0); Alkaline Phosphatase 120 U/L (40-110); Anion Gap 15 mmol/L (10-20); BUN (Urea Nitrogen) 11 mg/dL (9.8-20.1); Bilirubin, Total 0.4 mg/dL (0.2-1.2); Calc. Creatinine Clearance 0 mL/min (70-130); Carbon Dioxide 23 mmol/L (22-29); Chloride 104 mmol/L (98-107); Estimated GFR 86; Globulin 3.6 g/dL (2.4-3.5); Glucose 99 mg/dL (70-105); Magnesium 2.2 mg/dL (1.6-2.6); Potassium 4.5 mmol/L (3.5-5.1); Protein, Total 7.2 g/dL (6.0-8.3); Sodium 137 mmol/L (136-145)
[2022-06-19] MEDS ORDERED: Furosemide 40 MG/4 ML VIAL ONE (13:02)
[2022-06-19] MEDS ORDERED: Nitroglycerin 2% Ointment 1 INCH/1 GM Packet ONE (13:02)
[2022-06-19 13:13] LABS: SARS-CoV-2 NAA Rapid Test Not Detected (NotDetected)
[2022-06-19 15:08] LABS: PTT 40.7 sec (22.9-36.1)
[2022-06-19 15:14] LABS: INR-International Normal Ratio 0.9; Prothrombin Time 12.6 sec (12.0-14.7)
[2022-06-19] MEDS ORDERED: Heparin 10,000 UNITS/ 10 ML VIAL ONE (15:44)
[2022-06-19] MEDS ORDERED: Heparin 25,000 units/D5W 500 ML ONE (15:44)
== END 2022-06-19 17:45 | disposition short-term general hospital (02) ==
LOC: ERS 10:25
DX: D15.1 Benign neoplasm of heart (principal); R09.02 Hypoxemia; I31.31 Malignant pericardial effusion in diseases classified elsewhere; E78.00 Pure hypercholesterolemia, unspecified; I10 Essential (primary) hypertension; E03.9 Hypothyroidism, unspecified; K21.9 Gastro-esophageal reflux disease without esophagitis; F17.210 Nicotine dependence, cigarettes, uncomplicated; Z20.822 Contact with and (suspected) exposure to COVID-19
CPT/HCPCS: 36415; 71045; 71275; 80053; 83735; 83880; 84484; 85025; 85379; 85610; 85730; 93005; 93306; 96365; 96366; 96375; 96376; J1644; J1940

== ENCOUNTER 2022-08-21 16:19 | Inpatient (IN) | payer OTHER ==
[2022-08-21 17:05] LABS: #Basophils 0.1 thou/uL (0.0-0.2); #Eosinphils 0.3 thou/uL (0.0-0.7); #Lymphocytes 2.3 thou/uL (1.20-3.40); #Monocytes 0.7 thou/uL (0.11-0.59); #Neutrophils 4.9 thou/uL (1.40-6.50); %Basophils 0.7 % (0.0-1.0); %Eosinophils 3.5 % (0.0-10.0); %Lymphocytes 27.7 % (21.0-51.0); Hemoglobin 11.3 g/dL (12.0-16.0); Mean Corpuscular HGB CONC 33.5 g/dL (32.0-36.0); Mean Corpuscular Hemoglobin 27.9 pg (27.0-31.0); Mean Corpuscular Volume 83.3 fl (78.0-98.0); Platelet Count 216 10x3/uL (130-400); RBC Distribution Width 18.2 % (11.5-14.5); Red Blood Cell (RBC) Count 4.03 mill/uL (4.20-5.40); White Blood Cell (WBC) Count 8.1 10x3/uL (4.8-10.8)
[2022-08-21 17:27] LABS: ALT (SGPT) 20 U/L (8-55); AST (SGOT) 19 U/L (5-34); Albumin 4.2 g/dL (3.5-5.0); Alkaline Phosphatase 107 U/L (40-110); Anion Gap 15 mmol/L (10-20); BUN (Urea Nitrogen) 13 mg/dL (9.8-20.1); Bilirubin, Total 0.5 mg/dL (0.2-1.2); Calc. Creatinine Clearance 0 mL/min (70-130); Calcium 9.3 mg/dL (7.8-10.44); Carbon Dioxide 20 mmol/L (22-29); Chloride 108 mmol/L (98-107); Estimated GFR 77; Globulin 3.9 g/dL (2.4-3.5); Glucose 89 mg/dL (70-105); Potassium 4.6 mmol/L (3.5-5.1); Protein, Total 8.1 g/dL (6.0-8.3); Sodium 138 mmol/L (136-145)
[2022-08-21] MEDS ORDERED: Furosemide 40 MG/4 ML VIAL ONE (17:46)
[2022-08-21] MEDS ORDERED: Nitroglycerin 2% Ointment 1 INCH/1 GM Packet ONE (17:46)
[2022-08-21 21:10] LABS: Troponin I Less than 0.010 ng/mL (< 0.028)
[2022-08-21 22:31] VITALS: BMI 47.7
[2022-08-21 23:43] LABS: Troponin I Less than 0.010 ng/mL (< 0.028)
[2022-08-22] MEDS ORDERED: Ondansetron PF 4 MG/2 ML Vial IVP PRN (00:03)
[2022-08-22] MEDS ORDERED: Metoprolol Tartrate 25 MG TAB PO SCH (00:15)
[2022-08-22] MEDS ORDERED: lamoTRIgine 100 MG TAB PO SCH ×2 (00:15→21:00)
[2022-08-22] MEDS ORDERED: risperiDONE 1 MG TAB PO SCH ×2 (00:30→21:00)
[2022-08-22] MEDS ORDERED: Sertraline 100 MG TAB PO SCH ×2 (00:30→21:00)
[2022-08-22] MEDS: Acetaminophen 325 MG TAB PO PRN ×2 (00:35→13:58)
[2022-08-22] MEDS ORDERED: rOPINIRole HCl 0.25 MG TAB PO PRN (03:13)
[2022-08-22] MEDS: Levothyroxine 150 MCG TAB PO SCH (05:51)
[2022-08-22] MEDS: Furosemide 20 MG/2 ML VIAL SLOW IVP SCH ×2 (05:51→13:58)
[2022-08-22 06:00] LABS: Hemoglobin 10.9 g/dL (12.0-16.0); Mean Corpuscular HGB CONC 33.2 g/dL (32.0-36.0); Mean Corpuscular Hemoglobin 28.3 pg (27.0-31.0); Mean Corpuscular Volume 85.1 fl (78.0-98.0); Mean Platelet Volume 9.2 fL (7.4-10.4); Platelet Count 186 10x3/uL (130-400); RBC Distribution Width 18.3 % (11.5-14.5); Red Blood Cell (RBC) Count 3.85 mill/uL (4.20-5.40); White Blood Cell (WBC) Count 6.8 10x3/uL (4.8-10.8)
[2022-08-22 06:11] LABS: Anion Gap 14 mmol/L (10-20); BUN (Urea Nitrogen) 20 mg/dL (9.8-20.1); Calc. Creatinine Clearance 105 mL/min (70-130); Carbon Dioxide 19 mmol/L (22-29); Chloride 106 mmol/L (98-107); Estimated GFR 62; Glucose 95 mg/dL (70-105); Potassium 4.1 mmol/L (3.5-5.1); Sodium 135 mmol/L (136-145)
[2022-08-22 06:28] LABS: Eosinophils 4 % (0-10); Lymphocytes 32 % (21-51); MDiff Complete? YES; Monocytes 6 % (0-10); Neutrophil 58 % (42-75); Polychromasia SLIGHT = 2-3 cells (100X) (0-2/hpf)
[2022-08-22] MEDS: Aspirin 81 mg Enteric Coated Tablet PO SCH (08:14)
[2022-08-22] MEDS: Metoprolol Tartrate 25 MG TAB PO SCH ×2 (08:15→20:22)
[2022-08-23 04:45] LABS: #Basophils 0.1 thou/uL (0.0-0.2); #Eosinphils 0.3 thou/uL (0.0-0.7); #Lymphocytes 1.9 thou/uL (1.20-3.40); #Monocytes 0.5 thou/uL (0.11-0.59); #Neutrophils 2.8 thou/uL (1.40-6.50); %Basophils 1.4 % (0.0-1.0); %Eosinophils 4.9 % (0.0-10.0); %Monocytes 9.7 % (0.0-10.0); %Neutrophils 50.1 % (42.0-75.0); Hemoglobin 11.1 g/dL (12.0-16.0); Mean Corpuscular HGB CONC 32.6 g/dL (32.0-36.0); Mean Corpuscular Hemoglobin 27.2 pg (27.0-31.0); Mean Corpuscular Volume 83.6 fl (78.0-98.0); Mean Platelet Volume 8.9 fL (7.4-10.4); Platelet Count 179 10x3/uL (130-400); RBC Distribution Width 18.1 % (11.5-14.5); Red Blood Cell (RBC) Count 4.09 mill/uL (4.20-5.40); White Blood Cell (WBC) Count 5.6 10x3/uL (4.8-10.8)
[2022-08-23] MEDS: Levothyroxine 150 MCG TAB PO SCH (05:09)
[2022-08-23] MEDS: Furosemide 20 MG/2 ML VIAL SLOW IVP SCH ×2 (05:09→14:46)
[2022-08-23 05:10] LABS: Anion Gap 16 mmol/L (10-20); BUN (Urea Nitrogen) 24 mg/dL (9.8-20.1); Calc. Creatinine Clearance 102 mL/min (70-130); Calcium 9.2 mg/dL (7.8-10.44); Carbon Dioxide 21 mmol/L (22-29); Chloride 105 mmol/L (98-107); Estimated GFR 60; Glucose 95 mg/dL (70-105); Potassium 3.7 mmol/L (3.5-5.1); Sodium 138 mmol/L (136-145)
[2022-08-23] MEDS: Metoprolol Tartrate 25 MG TAB PO SCH (08:18)
[2022-08-23] MEDS: Aspirin 81 mg Enteric Coated Tablet PO SCH (08:18)
[2022-08-23] MEDS: ALPRAZolam 0.5 MG TAB PO SCH ×2 (08:19→15:19)
[2022-08-23] MEDS: Acetaminophen 325 MG TAB PO PRN (08:21)
[2022-08-23 11:39] VITALS: BP 137/67; TEMP 98.8
[2022-08-23] MEDS ORDERED: traZODone HCl 150 MG TAB PO SCH (21:00)
[2022-08-24] MEDS ORDERED: Losartan 25 MG TAB PO SCH (09:00)
[2022-08-24] MEDS ORDERED: Empagliflozin 10 MG TAB PO SCH (09:00)
== END 2022-08-23 16:30 | disposition home or self-care (01) | DRG 291 ==
LOC: ERS 16:19 → 2SW 18:24 → OBSVTOIN 08-23 07:51
PROVIDERS: ADMIT Family Medicine; ATTEND Internal Medicine
DX: I11.0 Hypertensive heart disease with heart failure (principal); I50.33 Acute on chronic diastolic (congestive) heart failure; E78.5 Hyperlipidemia, unspecified; K21.9 Gastro-esophageal reflux disease without esophagitis; E03.9 Hypothyroidism, unspecified; Z88.8 Allergy status to other drugs, medicaments and biological substances; Z90.710 Acquired absence of both cervix and uterus; Z85.3 Personal history of malignant neoplasm of breast; Z98.890 Other specified postprocedural states; Z92.21 Personal history of antineoplastic chemotherapy; Z98.1 Arthrodesis status; Z90.79 Acquired absence of other genital organ(s); Z90.722 Acquired absence of ovaries, bilateral; Z87.891 Personal history of nicotine dependence; Z79.890 Hormone replacement therapy
CPT/HCPCS: 36415; 71045; 80048; 80053; 83880; 84443; 84484; 85025; 93005; 93306; 96374; 96376; G0378; J1940

== ENCOUNTER 2022-08-31 09:10 | Inpatient (IN) | payer OTHER ==
[2022-08-31 09:39] LABS: #Eosinphils 0.2 thou/uL (0.0-0.7); #Lymphocytes 2.4 thou/uL (1.20-3.40); #Monocytes 0.5 thou/uL (0.11-0.59); #Neutrophils 3.5 thou/uL (1.40-6.50); %Basophils 0.2 % (0.0-1.0); %Eosinophils 2.9 % (0.0-10.0); %Lymphocytes 36.6 % (21.0-51.0); %Monocytes 7.4 % (0.0-10.0); %Neutrophils 52.9 % (42.0-75.0); Hemoglobin 11.7 g/dL (12.0-16.0); Mean Corpuscular HGB CONC 32.4 g/dL (32.0-36.0); Mean Corpuscular Hemoglobin 27.5 pg (27.0-31.0); Mean Corpuscular Volume 84.8 fl (78.0-98.0); Mean Platelet Volume 8.6 fL (7.4-10.4); Platelet Count 216 10x3/uL (130-400); RBC Distribution Width 18.4 % (11.5-14.5); Red Blood Cell (RBC) Count 4.24 mill/uL (4.20-5.40); White Blood Cell (WBC) Count 6.6 10x3/uL (4.8-10.8)
[2022-08-31 10:28] LABS: Bilirubin Negative (Negative); Blood, Urine Negative (Negative); Clarity Clear (Clear); Glucose, Urine (Dipstick) Normal (Negative); Ketone, Urine Negative (Negative); Leukocyte Negative Leu/uL (Negative); Nitrite Negative (Negative); Protein, Urine (Dipstick) Negative (Neg-Trace); Specific Gravity, Urine 1.021 (1.002-1.036); Urobilinogen Normal mg/dL (Less than 2); pH, Urine 5.5 (5.0-9.0)
[2022-08-31 10:33] LABS: ALT (SGPT) 13 U/L (8-55); AST (SGOT) 14 U/L (5-34); Alkaline Phosphatase 94 U/L (40-110); Anion Gap 13 mmol/L (10-20); BUN (Urea Nitrogen) 19 mg/dL (9.8-20.1); Bilirubin, Total 0.3 mg/dL (0.2-1.2); Calc. Creatinine Clearance 0 mL/min (70-130); Calcium 8.9 mg/dL (7.8-10.44); Carbon Dioxide 20 mmol/L (22-29); Chloride 105 mmol/L (98-107); Estimated GFR 64; Globulin 3.8 g/dL (2.4-3.5); Glucose 100 mg/dL (70-105); Lipase 34 U/L (8-78); Potassium 4.1 mmol/L (3.5-5.1); Protein, Total 7.8 g/dL (6.0-8.3); Sodium 134 mmol/L (136-145)
[2022-08-31] MEDS ORDERED: Morphine 4 MG/ML VIAL ONE (10:35)
[2022-08-31] MEDS ORDERED: Aspirin Chewable 81 MG TAB ONE (10:36)
[2022-08-31] MEDS ORDERED: Furosemide 20 MG/2 ML VIAL ONE (13:07)
[2022-08-31] MEDS ORDERED: Furosemide 40 MG/4 ML VIAL ONE (13:07)
[2022-08-31] MEDS ORDERED: Acetaminophen 500 MG TAB PO PRN (13:42)
[2022-08-31] MEDS ORDERED: hydrALAZINE 20 MG/ML VIAL SLOW IVP PRN (13:42)
[2022-08-31] MEDS ORDERED: rOPINIRole HCl 0.25 MG TAB PO PRN (13:42)
[2022-08-31] MEDS ORDERED: Ondansetron ODT 4 MG TAB PO PRN (13:42)
[2022-08-31] MEDS ORDERED: Ondansetron PF 4 MG/2 ML Vial IVP PRN (13:42)
[2022-08-31] MEDS: Furosemide 40 MG/4 ML VIAL SLOW IVP SCH (14:44)
[2022-08-31] MEDS: ALPRAZolam 0.5 MG TAB PO SCH ×2 (16:56→21:55)
[2022-08-31 17:11] VITALS: BMI 41.9
[2022-08-31] MEDS ORDERED: Sertraline 100 MG TAB PO SCH (21:00)
[2022-08-31] MEDS ORDERED: risperiDONE 1 MG TAB PO SCH (21:00)
[2022-08-31] MEDS ORDERED: lamoTRIgine 100 MG TAB PO SCH (21:00)
[2022-08-31] MEDS: Famotidine 20 MG TAB PO SCH (21:57)
[2022-09-01 04:56] LABS: #Eosinphils 0.2 thou/uL (0.0-0.7); #Lymphocytes 1.9 thou/uL (1.20-3.40); #Monocytes 0.5 thou/uL (0.11-0.59); #Neutrophils 3.2 thou/uL (1.40-6.50); %Basophils 0.2 % (0.0-1.0); %Lymphocytes 32.6 % (21.0-51.0); %Monocytes 8.4 % (0.0-10.0); %Neutrophils 55.8 % (42.0-75.0); Hemoglobin 11.6 g/dL (12.0-16.0); Mean Corpuscular HGB CONC 33.2 g/dL (32.0-36.0); Mean Corpuscular Hemoglobin 28.1 pg (27.0-31.0); Mean Corpuscular Volume 84.5 fl (78.0-98.0); Mean Platelet Volume 8.7 fL (7.4-10.4); Platelet Count 186 10x3/uL (130-400); RBC Distribution Width 18.8 % (11.5-14.5); Red Blood Cell (RBC) Count 4.13 mill/uL (4.20-5.40); White Blood Cell (WBC) Count 5.7 10x3/uL (4.8-10.8)
[2022-09-01 05:18] LABS: Anion Gap 13 mmol/L (10-20); BUN (Urea Nitrogen) 18 mg/dL (9.8-20.1); Calc. Creatinine Clearance 121 mL/min (70-130); Calcium 9.3 mg/dL (7.8-10.44); Carbon Dioxide 23 mmol/L (22-29); Chloride 105 mmol/L (98-107); Estimated GFR 74; Glucose 96 mg/dL (70-105); Magnesium 2.2 mg/dL (1.6-2.6); Potassium 4.1 mmol/L (3.5-5.1); Sodium 137 mmol/L (136-145)
[2022-09-01] MEDS ORDERED: Levothyroxine 150 MCG TAB PO SCH (06:00)
[2022-09-01] MEDS: Furosemide 40 MG/4 ML VIAL SLOW IVP SCH ×2 (06:17→07:30)
[2022-09-01] MEDS ORDERED: Furosemide 40 MG TAB PO SCH (07:45)
[2022-09-01 08:22] VITALS: BP 127/69; TEMP 97.7
[2022-09-01] MEDS: Famotidine 20 MG TAB PO SCH (08:36)
[2022-09-01] MEDS: ALPRAZolam 0.5 MG TAB PO SCH (08:36)
[2022-09-01] MEDS ORDERED: Losartan 25 MG TAB PO SCH (09:00)
[2022-09-01] MEDS ORDERED: Aspirin 81 mg Enteric Coated Tablet PO SCH (09:00)
== END 2022-09-01 12:00 | disposition home or self-care (01) | DRG 291 ==
LOC: ERS 09:10 → ERHOLD 13:13 → 2SW 16:09
PROVIDERS: ADMIT Internal Medicine; ATTEND Internal Medicine
DX: I11.0 Hypertensive heart disease with heart failure (principal); I50.33 Acute on chronic diastolic (congestive) heart failure; E03.9 Hypothyroidism, unspecified; E78.5 Hyperlipidemia, unspecified; K21.9 Gastro-esophageal reflux disease without esophagitis; F41.9 Anxiety disorder, unspecified; F32.A Depression, unspecified; E78.2 Mixed hyperlipidemia; Z87.891 Personal history of nicotine dependence; Z90.722 Acquired absence of ovaries, bilateral; Z98.1 Arthrodesis status; Z90.710 Acquired absence of both cervix and uterus; Z79.890 Hormone replacement therapy; Z79.82 Long term (current) use of aspirin; Z90.89 Acquired absence of other organs
CPT/HCPCS: 36416; 71045; 80048; 80053; 81003; 83690; 83735; 83880; 84484; 85025; 93005; 94760; 96374; 96375; J1940; J2270

== ENCOUNTER 2022-09-29 20:27 | Emergency (ER) | payer OTHER ==
[~2022-09-29 20:27] MED LIST changes: +Iopamidol 370 76% 100 ML VIAL ONE; -Iopamidol-370 76% 500 ML 1 ML ONE
[2022-09-29] MEDS ORDERED: Morphine 4 MG/ML VIAL ONE ×3 (20:44→23:51)
[2022-09-29] MEDS ORDERED: Ondansetron PF 4 MG/2 ML Vial ONE (20:44)
[2022-09-29 20:52] LABS: #Eosinphils 0.1 thou/uL (0.0-0.7); #Lymphocytes 3.7 thou/uL (1.20-3.40); #Monocytes 0.8 thou/uL (0.11-0.59); #Neutrophils 6.5 thou/uL (1.40-6.50); %Basophils 0.3 % (0.0-1.0); %Eosinophils 1.1 % (0.0-10.0); %Lymphocytes 33.3 % (21.0-51.0); %Neutrophils 58.3 % (42.0-75.0); Hemoglobin 12.7 g/dL (12.0-16.0); Mean Corpuscular HGB CONC 35.5 g/dL (32.0-36.0); Mean Corpuscular Hemoglobin 29.3 pg (27.0-31.0); Mean Corpuscular Volume 82.5 fl (78.0-98.0); Mean Platelet Volume 9.2 fL (7.4-10.4); Platelet Count 195 10x3/uL (130-400); Red Blood Cell (RBC) Count 4.35 mill/uL (4.20-5.40); White Blood Cell (WBC) Count 11.1 10x3/uL (4.8-10.8)
[2022-09-29 21:11] LABS: ALT (SGPT) 11 U/L (8-55); AST (SGOT) 14 U/L (5-34); Albumin 4.4 g/dL (3.5-5.0); Alkaline Phosphatase 87 U/L (40-110); Anion Gap 18 mmol/L (10-20); BUN (Urea Nitrogen) 17 mg/dL (9.8-20.1); Bilirubin, Total 0.3 mg/dL (0.2-1.2); Calc. Creatinine Clearance 0 mL/min (70-130); Calcium 9.7 mg/dL (7.8-10.44); Carbon Dioxide 21 mmol/L (22-29); Chloride 100 mmol/L (98-107); Estimated GFR 78; Globulin 4.2 g/dL (2.4-3.5); Glucose 85 mg/dL (70-105); Lipase 32 U/L (8-78); Potassium 3.6 mmol/L (3.5-5.1); Protein, Total 8.6 g/dL (6.0-8.3); Sodium 135 mmol/L (136-145)
[2022-09-29 21:28] LABS: INR-International Normal Ratio 0.9; Prothrombin Time 11.9 sec (12.0-14.7)
[2022-09-29 21:29] LABS: PTT 32.2 sec (22.9-36.1)
[2022-09-29] MEDS ORDERED: Pantoprazole 40 MG VIAL ONE (22:42)
[2022-09-29] MEDS ORDERED: Mag-Al 1200 mg/1200 mg/30 ML UDCUP ONE (22:42)
[2022-09-29] MEDS ORDERED: Lidocaine Viscous Sol 2% 15 ml UD Cup ONE (22:42)
[2022-09-30 00:42] LABS: Troponin I Less than 0.010 ng/mL (< 0.028)
[2022-09-30] MEDS ORDERED: Morphine 4 MG/ML VIAL ONE (01:19)
== END 2022-09-30 02:04 | disposition home or self-care (01) ==
LOC: ERS 20:27
DX: R07.2 Precordial pain (principal); K44.9 Diaphragmatic hernia without obstruction or gangrene; D72.829 Elevated white blood cell count, unspecified; E78.5 Hyperlipidemia, unspecified; I10 Essential (primary) hypertension; K21.9 Gastro-esophageal reflux disease without esophagitis
CPT/HCPCS: 36415; 71045; 71275; 74174; 80053; 83690; 84484; 85025; 85610; 85730; 93005; 96374; 96375; 96376; C9113; J2270; J2405; Q9967

== ENCOUNTER 2022-12-24 11:49 | Emergency (ER) | payer OTHER ==
[~2022-12-24 11:49] MED LIST changes: -Iopamidol 370 76% 100 ML VIAL ONE; +Iopamidol-370 76% 500 ML MDV (1 ML CHARGE) ONE
[2022-12-24 12:53] LABS: #Eosinphils 0.1 thou/uL (0.0-0.7); #Monocytes 0.9 thou/uL (0.11-0.59); #Neutrophils 5.4 thou/uL (1.40-6.50); %Basophils 0.2 % (0.0-1.0); %Eosinophils 0.9 % (0.0-10.0); %Lymphocytes 29.3 % (21.0-51.0); %Monocytes 9.4 % (0.0-10.0); %Neutrophils 59.6 % (42.0-75.0); Hemoglobin 12.7 g/dL (12.0-16.0); Mean Corpuscular HGB CONC 32.5 g/dL (32.0-36.0); Mean Corpuscular Hemoglobin 27.7 pg (27.0-31.0); Mean Corpuscular Volume 85.2 fl (78.0-98.0); Platelet Count 205 10x3/uL (130-400); RBC Distribution Width 14.1 % (11.5-14.5); Red Blood Cell (RBC) Count 4.59 mill/uL (4.20-5.40)
[2022-12-24] MEDS ORDERED: Ketorolac Tromethamine 30 MG/ML VIAL ONE (12:55)
[2022-12-24] MEDS ORDERED: Ondansetron PF 4 MG/2 ML Vial ONE (12:55)
[2022-12-24] MEDS ORDERED: LORazepam 2 MG/ML SYR.(CARPUJECT) ONE (12:57)
[2022-12-24 13:13] LABS: ALT (SGPT) 12 U/L (8-55); AST (SGOT) 13 U/L (5-34); Albumin 4.2 g/dL (3.5-5.0); Alkaline Phosphatase 86 U/L (40-110); Anion Gap 16 mmol/L (10-20); BUN (Urea Nitrogen) 11 mg/dL (9.8-20.1); Bilirubin, Total 0.4 mg/dL (0.2-1.2); Calc. Creatinine Clearance 0 mL/min (70-130); Calcium 9.9 mg/dL (7.8-10.44); Carbon Dioxide 18 mmol/L (22-29); Chloride 110 mmol/L (98-107); Estimated GFR 79; Globulin 3.8 g/dL (2.4-3.5); Glucose 104 mg/dL (70-105); Lipase 28 U/L (8-78); Potassium 3.6 mmol/L (3.5-5.1); Sodium 140 mmol/L (136-145)
[2022-12-24] MEDS ORDERED: Morphine 4 MG/ML VIAL ONE (14:16)
== END 2022-12-24 17:23 | disposition home or self-care (01) ==
LOC: ERS 11:49
DX: R07.89 Other chest pain (principal); K21.9 Gastro-esophageal reflux disease without esophagitis; E78.5 Hyperlipidemia, unspecified; I10 Essential (primary) hypertension; Z20.822 Contact with and (suspected) exposure to COVID-19; Z79.899 Other long term (current) drug therapy
CPT/HCPCS: 36415; 71045; 71275; 80053; 83690; 83880; 84443; 84484; 85025; 85379; 93005; 96374; 96375; J1885; J2060; J2270; J2405; Q9967